=== PATIENT | female | born 1995 | race Caucasian/White ===

== ENCOUNTER 2017-10-05 15:58 | Emergency (ER) | payer SELFPAY ==
[2017-10-05 16:54] VITALS: BP 138/82
== END 2017-10-05 17:01 | disposition home or self-care (01) ==
LOC: ED 15:58
DX: S61.412A Laceration without foreign body of left hand, initial encounter (principal); W26.0XXA Contact with knife, initial encounter; Y92.009 Unspecified place in unspecified non-institutional (private) residence as the place of occurrence of the external cause